=== PATIENT | male | born 1985 | race Caucasian/White ===

== ENCOUNTER 2017-06-28 10:35 | Emergency (ER) | payer OTHER ==
[~2017-06-28] VITALS: Ht 185.4 cm; Wt 86.2 kg
[~2017-06-28 10:35] MED LIST: DILAUDID 4 MG TA4 M1 PO; FLEXERIL PO
[2017-06-28] MEDS ORDERED: PERCOCET PO (11:09)
[2017-06-28] MEDS ORDERED: NAPROSYN500 MG PO (11:09)
[2017-06-28] MEDS ORDERED: CYCLOBENZAPRINE5 MG PO (12:14)
[2017-06-28] MEDS ORDERED: ACETAMINOPHEN-1 EAC1 PO (12:14)
[2017-06-28 12:27] VITALS: BP 105/50
== END 2017-06-28 12:28 | disposition home or self-care (01) ==
LOC: M.ERS 10:35
DX: S09.8XXA Other specified injuries of head, initial encounter (principal); M25.511 Pain in right shoulder; Z88.6 Allergy status to analgesic agent; Z88.8 Allergy status to other drugs, medicaments and biological substances; W18.39XA Other fall on same level, initial encounter; Y93.89 Activity, other specified; Y92.89 Other specified places as the place of occurrence of the external cause; Y99.8 Other external cause status